=== PATIENT | male | born 1985 ===

== ENCOUNTER 2021-10-04 12:45 | Emergency (ER) | payer MEDICAID, OTHER ==
[~2021-10-04] VITALS: Ht 172.7 cm; Wt 93.9 kg
[2021-10-04 13:06] VITALS: BP 170/110
== END 2021-10-04 18:26 | disposition left against medical advice (07) ==
LOC: EDBD 12:45 → ER 12:45
DX: F41.9 Anxiety disorder, unspecified (principal); F10.239 Alcohol dependence with withdrawal, unspecified; Y90.9 Presence of alcohol in blood, level not specified; Z53.21 Procedure and treatment not carried out due to patient leaving prior to being seen by health care provider